=== PATIENT | female | born 1975 | race Two or more races ===

== ENCOUNTER 2017-02-25 12:24 | Observation (INO) | payer BC, OTHER ==
[2017-02-25] MEDS ORDERED: SODIUM CHLORIDE 1,000 ML IV STA (13:44)
--- NOTE | 2017-02-25 13:44 | PDOC ---
History of Present Illness - General Chief Complaint: Vomiting/Diarrhea Stated Complaint: ABD PAIN, FATIGUE,VOMITING Time Seen by Provider: 02/25/17 13:43 History Source: Patient Exam Limitations: No Limitations - History of Present Illness Initial Comments: 02/25/17 13:44 CHIEF COMPLAINT: Vomiting HISTORY OF PRESENT ILLNESS: This is an otherwise healthy 41 year old female who presents complaining of nausea/vomiting and diarrhea since 11pm last night. She has been able to keep down small sips of fluids. She denies abdominal pain, but does feel "bloated". She has not had fevers, but has had some chills. She denies dysuria, hematuria, or abnormal vaginal discharge. LMP was 02/18 and normal. She denies recent travel/sick contacts. Surgical history: Appendectomy. Vital signs on arrival are notable for P 120. REVIEW OF SYSTEMS: GENERAL/CONSTITUTIONAL: Chills. Generalized weakness. No weight change. HEAD, EYES, EARS, NOSE AND THROAT: No change in vision. No ear pain or discharge. No sore throat. CARDIOVASCULAR: No chest pain or palpitations. RESPIRATORY: No cough, wheezing, or shortness of breath. GASTROINTESTINAL: See HPI. GENITOURINARY: No dysuria, frequency, or change in urination. MUSCULOSKELETAL: No joint or muscle swelling or pain. No neck or back pain. SKIN: No rash or easy bruising. NEUROLOGIC: No headache, vertigo, loss of consciousness, or loss of sensation. PSYCHIATRIC: No depression or anxiety. ENDOCRINE: No increased thirst. No abnormal weight change. HEMATOLOGIC/LYMPHATIC: No anemia, easy bleeding, or history of blood clots. ALLERGIC/IMMUNOLOGIC: No hives or skin allergy. No latex allergy. PHYSICAL EXAM: GENERAL: The patient is awake, alert, and fully oriented, in no acute distress. HEAD: Normal with no signs of trauma. ENT: Pupils equal, round and reactive to light, extraocular movements intact, sclera anicteric, conjunctiva clear. Neck supple. LUNGS: Clear to auscultation bilaterally. Normal excursion. No respiratory distress or use of accessory muscles. CV: Tachycardic. RRR, S1/S2, no MRG. Cap refill < 2 sec. ABDOMEN: Soft, non-distended, non-tender even to deep palpation. EXTREMITIES: Normal range of motion, no edema. NEUROLOGICAL: Normal speech, normal gait. CN II-XII grossly intact. PSYCH: Normal mood, normal affect. SKIN: Warm, dry, normal turgor, no rashes or lesions noted. Past History - Past Medical History Allergies/Adverse Reactions: Allergies Allergy/AdvReac Type Severity Reaction Status Date / Time No Known Allergies Allergy Verified 02/25/17 12:45 Home Medications: Ambulatory Orders NK [No Known Home Medication] 02/25/17 - Surgical History Appendectomy: Yes - Psycho/Social/Smoking Cessation Hx Anxiety: No Suicidal Ideation: No Smoking Status: No Smoking History: Never smoked Number of Cigarettes Smoked Daily: 0 Information on smoking cessation initiated: No *Physical Exam - Vital Signs Last Vital Signs Temp Pulse Resp BP Pulse Ox 98 F 120 H 18 117/74 98 02/25/17 12:43 02/25/17 12:43 02/25/17 12:43 02/25/17 12:43 02/25/17 12:43 Heart Score/ECG Review - History History: Slightly suspicious - Electrocardiogram EKG: Non specific repolarization disturbance - Age Age: </= 45 - Risk Factors Risk Factors Heart Score: Yes Hx Hypertension Based on the list above the patient has:: 1-2 risk factors - Troponin Troponin: </= normal limit - Score Heart Score - Total: 2 - ECG Intrepretation Comment:: 02/25/17 19:00 ED Treatment Course - LABORATORY CBC & Chemistry Diagram: 02/25/17 13:44 02/25/17 13:44 Medical Decision Making - Medical Decision Making 02/25/17 15:35 A/P: 41 year old female with n/v/d. No abdominal pain or tenderness on exam. 1. EKG: Sinus tachycardia at 118bpm, TWI in anterior leads and ST depression in V3 2. Abdominal labs 3. IV fluids, Zofran, Pepcid Will repeat EKG when rate has decreased. 02/25/17 16:09 WBC mildly elevated at 11.2. Chemistry unremarkable. Some microscopic hematuria noted but patient reports she "just finished" her menses. 02/25/17 17:31 EKG repeated: Sinus tachycardia at 104bpm. TWI in anterior leads. Patient re-evaluated and is tolerating po water. Abdomen exam repeated and is again benign. Patient feels "weak" and "not right". Will request observation given abnormal EKG. Accepted by Dr. Chaparro. *DC/Admit/Observation/Transfer Diagnosis at time of Disposition: Tachycardia, Abnormal EKG Nausea & vomiting Qualifiers: Vomiting type: unspecified Vomiting Intractability: non-intractable Qualified Code(s): R11.2 - Nausea with vomiting, unspecified - Discharge Dispostion Admit: Yes
[2017-02-25 14:20] LABS: BASOPHIL 0.4 % (0-2.0); EOSINOPHIL 0.6 % (0-4.5); MCH 29.6 pg (25.7-33.7); MEAN CELL VOLUME 89.9 fl (80-96); MEAN PLT VOLUME 7.3 fl (7.5-11.1); NEUTROPHILS 92.1 % (42.8-82.8); PLATELET COUNT 313 K/MM3 (134-434); RDW 13.5 % (11.6-15.6); WHITE BLOOD COUNT 11.2 K/mm3 (4.0-10.0)
[2017-02-25 14:22] LABS: URINE APPEARANCE CLEAR; URINE BILIRUBIN NEGATIVE (NEGATIVE); URINE COLOR YELLOW; URINE GLUCOSE (UA) NEGATIVE (NEGATIVE); URINE KETONE NEGATIVE (NEGATIVE); URINE NITRITE NEGATIVE (NEGATIVE); URINE PROTEIN NEGATIVE (NEGATIVE); URINE UROBILINOGEN NEGATIVE E.U./dl (0.2-1.0)
[2017-02-25 14:24] LABS: URINE BLOOD 2+ (NEGATIVE); URINE LEUK ESTERASE 1+ (NEGATIVE)
[2017-02-25 14:30] LABS: URINE MUCUS RARE; URINE RBC 33 /hpf (0-3); URINE WBC 12 /hpf (3-5)
[2017-02-25 14:44] LABS: ALK PHOS 90 U/L (45-117); ANION GAP 12 (8-16); BILIRUBIN,TOTAL 0.6 mg/dL (0.2-1.0); CALCIUM 9.1 mg/dL (8.5-10.1); CO2 26 mmol/L (21-32); CREATININE 0.7 mg/dL (0.55-1.02); GLUCOSE,RANDOM 99 mg/dL (74-106); SGOT/AST 14 U/L (15-37); SGPT/ALT 28 U/L (12-78); TOT PROT 7.7 g/dl (6.4-8.2)
[2017-02-25 14:45] LABS: TROPONIN I < 0.02 ng/ml (0.00-0.05)
[2017-02-25] MEDS ORDERED: FAMOTIDINE 20 MG/50 ML IVPB 20 MG in PREMIX 50 IVPB ONE (14:51)
[2017-02-25] MEDS ORDERED: ONDANSETRON 4 MG/2 ML VIAL IVPUSH ONE (14:51)
[2017-02-25] MEDS ORDERED: ONDANSETRON 4 MG/2 ML VIAL ONE (15:11)
[2017-02-25] MEDS ORDERED: FAMOTIDINE 20 MG/50 ML IVPB 50 ML IVPB ONE (15:12)
[2017-02-25] MEDS: SODIUM CHLORIDE 1,000 ML IV SCH (15:22)
[2017-02-25] MEDS ORDERED: MAG HYDROX/AL HYDROX/SIMETH 30 ML UNIT-DOSE CUP PO ONE (16:43)
[2017-02-25] MEDS ORDERED: MAG HYDROX/AL HYDROX/SIMETH 30 ML UNIT-DOSE CUP ONE (16:52)
[2017-02-25 20:03] LABS: TROPONIN I < 0.02 ng/ml (0.00-0.05)
--- NOTE | 2017-02-25 20:32 | HP ---
Admitting History and Physical - Primary Care Physician PCP: Yuni Chaparro - Admission History of Present Illness: 41 year old female who presents complaining of nausea/vomiting and diarrhea since 11pm last night. She has been able to keep down small sips of fluids. She denies abdominal pain, but does feel "bloated". She has not had fevers, but has had chills nofever - Smoking History Smoking history: Never smoked Aproximately how many cigarettes per day: 0 Home Medications - Allergies Allergies/Adverse Reactions: Allergies Allergy/AdvReac Type Severity Reaction Status Date / Time No Known Allergies Allergy Verified 02/25/17 12:45 - Home Medications Home Medications: Ambulatory Orders NK [No Known Home Medication] 02/25/17 Physical Examination Vital Signs: Vital Signs Temperature 98 F 02/25/17 12:43 Pulse Rate 106 H 02/25/17 20:26 Respiratory Rate 18 02/25/17 20:26 Blood Pressure 124/63 02/25/17 20:26 O2 Sat by Pulse Oximetry (%) 100 02/25/17 20:26 Constitutional: Yes: No Distress HENT: Yes: Atraumatic Neck: Yes: Supple Cardiovascular: Yes: Regular Rate and Rhythm Respiratory: Yes: CTA Bilaterally Gastrointestinal: Yes: Normal Bowel Sounds Extremities: Yes: WNL Neurological: Yes: Alert, Oriented Imaging - Results Chest X-ray: Report Reviewed Problem List - Problems (1) Abnormal EKG Assessment/Plan: will monitor on tele repeat ekg fu cardiac enzyme Code(s): R94.31 - ABNORMAL ELECTROCARDIOGRAM [ECG] [EKG] (2) Nausea & vomiting Code(s): R11.2 - NAUSEA WITH VOMITING, UNSPECIFIED Qualifiers: Vomiting type: unspecified Vomiting Intractability: non-intractable Qualified Code(s): R11.2 - Nausea with vomiting, unspecified (3) Tachycardia Code(s): R00.0 - TACHYCARDIA, UNSPECIFIED (4) UTI (urinary tract infection) Assessment/Plan: mild observe asymptomatic Code(s): N39.0 - URINARY TRACT INFECTION, SITE NOT SPECIFIED Assessment/Plan Laboratory Tests 02/25/17 02/25/17 02/25/17 13:44 13:44 13:44 WBC 11.2 H RBC 4.90 Hgb 14.5 Hct 44.1 MCV 89.9 MCHC 33.0 RDW 13.5 Plt Count 313 MPV 7.3 L Neutrophils % 92.1 H Lymphocytes % 3.9 L Monocytes % 3.0 L Eosinophils % 0.6 Basophils % 0.4 Sodium 139 Potassium 4.0 Chloride 101 Carbon Dioxide 26 Anion Gap 12 BUN 12 Creatinine 0.7 Creat Clearance w eGFR > 60 Random Glucose 99 Calcium 9.1 Total Bilirubin 0.6 AST 14 L ALT 28 Alkaline Phosphatase 90 Creatine Kinase Troponin I Total Protein 7.7 Albumin 4.0 Lipase 90 TSH Urine Color Yellow Urine Appearance Clear Urine pH 6.0 Ur Specific [place] 1.028 Urine Protein Negative Urine Glucose (UA) Negative Urine Ketones Negative Urine Blood 2+ H Urine Nitrite Negative Urine Bilirubin Negative Urine Urobilinogen Negative Ur Leukocyte Esterase 1+ H Urine RBC 33 Urine WBC 12 Ur Epithelial Cells Few Urine Mucus Rare Urine HCG, Qual Negative 02/25/17 02/25/17 02/25/17 14:14 19:02 19:02 WBC RBC Hgb Hct MCV MCHC RDW Plt Count MPV Neutrophils % Lymphocytes % Monocytes % Eosinophils % Basophils % Sodium Potassium Chloride Carbon Dioxide Anion Gap BUN Creatinine Creat Clearance w eGFR Random Glucose Calcium Total Bilirubin AST ALT Alkaline Phosphatase Creatine Kinase 105 98 Troponin I < 0.02 < 0.02 Total Protein Albumin Lipase TSH 0.55 Urine Color Urine Appearance Urine pH Ur Specific [place] Urine Protein Urine Glucose (UA) Urine Ketones Urine Blood Urine Nitrite Urine Bilirubin Urine Urobilinogen Ur Leukocyte Esterase Urine RBC Urine WBC Ur Epithelial Cells Urine Mucus Urine HCG, Qual Active Medications Generic Name Dose Route Start Last Admin Trade Name Freq PRN Reason Stop Dose Admin Sodium Chloride 1,000 mls @ 125 mls/hr 02/25/17 15:15 02/25/17 15:22 Normal Saline - IV 125 mls/hr ASDIR BRIANNE Administration
[2017-02-25] MEDS ORDERED: SODIUM CHLORIDE 1,000 ML IV SCH (20:45)
[2017-02-25] MEDS ORDERED: PT OWN MED DRAWER 7, Y5N ONE (21:35)
[2017-02-25 23:15] VITALS: BMI 29.0
--- NOTE | 2017-02-26 17:34 | EKG ---
Test Reason : Blood Pressure : / mmHG Vent. Rate : 104 BPM Atrial Rate : 104 BPM P-R Int : 132 ms QRS Dur : 090 ms QT Int : 302 ms P-R-T Axes : 054 051 012 degrees QTc Int : 397 ms SINUS TACHYCARDIA POSSIBLE LEFT ATRIAL ENLARGEMENT LOW VOLTAGE QRS NONSPECIFIC T WAVE ABNORMALITY ABNORMAL ECG WHEN COMPARED WITH ECG OF 25-FEB-2017 14:04, NO SIGNIFICANT CHANGE WAS FOUND Confirmed by SUSANNE MADISON, TOM ([id number]) on 02/26/2017 5:34:12 PM Referred By: Confirmed By:TOM SKINNER MD
--- NOTE | 2017-02-26 17:38 | EKG ---
Test Reason : Blood Pressure : / mmHG Vent. Rate : 118 BPM Atrial Rate : 118 BPM P-R Int : 140 ms QRS Dur : 070 ms QT Int : 304 ms P-R-T Axes : 058 050 015 degrees QTc Int : 426 ms SINUS TACHYCARDIA POSSIBLE LEFT ATRIAL ENLARGEMENT LOW VOLTAGE QRS T WAVE ABNORMALITY, CONSIDER ANTERIOR ISCHEMIA ABNORMAL ECG NO PREVIOUS ECGS AVAILABLE Confirmed by TOM SKINNER MD ([id number]) on 02/26/2017 5:38:25 PM Referred By: Confirmed By:TOM SKINNER MD
--- NOTE | 2017-02-26 17:48 | CON.CARD ---
Consult Consult Specialty:: Cardiology Referred by:: Dr. Chaparro Reason for Consultation:: Cardiac evaluation - History of Present Illness Chief Complaint: Nausea and vomiting with sinus tachycardia - History Source History Provided By: Patient, Medical Record Limitations to Obtaining History: No Limitations - Past Medical History ...LMP: 02/15/17 ...: No - Past Surgical History Past Surgical History: Yes: None - Alcohol/Substance Use Hx Alcohol Use: No - Smoking History Smoking history: Never smoked Aproximately how many cigarettes per day: 0 Home Medications - Allergies Allergies/Adverse Reactions: Allergies Allergy/AdvReac Type Severity Reaction Status Date / Time No Known Allergies Allergy Verified 02/25/17 12:45 - Home Medications Home Medications: Ambulatory Orders NK [No Known Home Medication] 02/25/17 Review of Systems - Review of Systems Constitutional: denies: Chills, Fever Cardiovascular: denies: Chest Pain, Palpitations, Shortness of Breath Respiratory: denies: Cough, Hemoptysis, Orthopnea, PND, SOB, SOB on Exertion Gastrointestinal: reports: Diarrhea, Nausea, Vomiting. denies: Abdominal Pain, Constipation, Melena, Rectal Bleeding Genitourinary: denies: Dysuria Neurological: denies: Dizziness, Headache, Seizure, Syncope Vital Signs: Vital Signs Temperature 100.6 F H 02/26/17 17:27 Pulse Rate 85 02/26/17 17:27 Respiratory Rate 18 02/26/17 17:27 Blood Pressure 121/73 02/26/17 17:27 O2 Sat by Pulse Oximetry (%) 95 02/26/17 12:00 Neck: Yes: Supple Respiratory: Yes: CTA Bilaterally Gastrointestinal: Yes: Normal Bowel Sounds, Soft. No: Tenderness Cardiovascular: Yes: Regular Rate and Rhythm JVD: No Carotid Bruit: No PMI: Non-Displaced Heart Sounds: Yes: S1, S2. No: Gallop Murmur: No: Systolic Murmur, Diastolic Murmur Edema: No - Other Data Labs, Other Data: CBCD WBC 5.8 K/mm3 (4.0-10.0) D 02/26/17 21:00 RBC 4.05 M/mm3 (3.60-5.2) 02/26/17 21:00 Hgb 12.1 GM/dL (10.7-15.3) D 02/26/17 21:00 Hct 36.2 % (32.4-45.2) D 02/26/17 21:00 MCV 89.4 fl (80-96) 02/26/17 21:00 MCHC 33.5 g/dl (32.0-36.0) 02/26/17 21:00 RDW 13.3 % (11.6-15.6) 02/26/17 21:00 Plt Count 265 K/MM3 (134-434) 02/26/17 21:00 MPV 7.7 fl (7.5-11.1) 02/26/17 21:00 CBC, BMP 02/26/17 21:00 CARDIAC ENZYMES Creatine Kinase 98 IU/L (26-192) 02/25/17 19:02 Troponin I < 0.02 ng/ml (0.00-0.05) 02/25/17 19:02 Laboratory Tests 02/25/17 02/25/17 02/25/17 13:44 13:44 13:44 WBC 11.2 H RBC 4.90 Hgb 14.5 Hct 44.1 MCV 89.9 MCHC 33.0 RDW 13.5 Plt Count 313 MPV 7.3 L Neutrophils % 92.1 H Lymphocytes % 3.9 L Monocytes % 3.0 L Eosinophils % 0.6 Basophils % 0.4 Sodium 139 Potassium 4.0 Chloride 101 Carbon Dioxide 26 Anion Gap 12 BUN 12 Creatinine 0.7 Creat Clearance w eGFR > 60 Random Glucose 99 Calcium 9.1 Total Bilirubin 0.6 AST 14 L ALT 28 Alkaline Phosphatase 90 Creatine Kinase Troponin I Total Protein 7.7 Albumin 4.0 Lipase 90 TSH Urine Color Yellow Urine Appearance Clear Urine pH 6.0 Ur Specific [place] 1.028 Urine Protein Negative Urine Glucose (UA) Negative Urine Ketones Negative Urine Blood 2+ H Urine Nitrite Negative Urine Bilirubin Negative Urine Urobilinogen Negative Ur Leukocyte Esterase 1+ H Urine RBC 33 Urine WBC 12 Ur Epithelial Cells Few Urine Mucus Rare Urine HCG, Qual Negative 02/25/17 02/25/17 02/25/17 14:14 19:02 19:02 WBC RBC Hgb Hct MCV MCHC RDW Plt Count MPV Neutrophils % Lymphocytes % Monocytes % Eosinophils % Basophils % Sodium Potassium Chloride Carbon Dioxide Anion Gap BUN Creatinine Creat Clearance w eGFR Random Glucose Calcium Total Bilirubin AST ALT Alkaline Phosphatase Creatine Kinase 105 98 Troponin I < 0.02 < 0.02 Total Protein Albumin Lipase TSH 0.55 Urine Color Urine Appearance Urine pH Ur Specific [place] Urine Protein Urine Glucose (UA) Urine Ketones Urine Blood Urine Nitrite Urine Bilirubin Urine Urobilinogen Ur Leukocyte Esterase Urine RBC Urine WBC Ur Epithelial Cells Urine Mucus Urine HCG, Qual Sinus tachycardia with nonspecific T wave abnormality Echo: Pending Imaging - Results Chest X-ray: Report Reviewed (Unremarkable) EKG: Report Reviewed Problem List - Problems (1) Abnormal EKG Code(s): R94.31 - ABNORMAL ELECTROCARDIOGRAM [ECG] [EKG] (2) Nausea & vomiting Code(s): R11.2 - NAUSEA WITH VOMITING, UNSPECIFIED Qualifiers: Vomiting type: unspecified Vomiting Intractability: non-intractable Qualified Code(s): R11.2 - Nausea with vomiting, unspecified (3) Sinus tachycardia Code(s): R00.0 - TACHYCARDIA, UNSPECIFIED Assessment/Plan 1. Nausea/vomiting/diarrhea 2. Sinus tachycardia with nonspecific T abnormality - probably due to dehydration secondary to above symptoms PLAN: 1. Transthoracic echocardiography to assess LV and valvular function 2. Hydration 3. No further cardiac work up is warranted at this time since she does not exhibit cardiac symptoms and without any risk factors. Further plans are to follow Marcellus Klein MD
[2017-02-26] MEDS: SODIUM CHLORIDE 1,000 ML IV SCH (18:24)
--- NOTE | 2017-02-26 20:27 | PN ---
Progress Note, Physician History of Present Illness: mild fever - Current Medication List Current Medications: Active Medications Sodium Chloride (Normal Saline -) 1,000 mls @ 125 mls/hr IV ASDIR [facility] Last Admin: 02/26/17 18:24 Dose: Not Given Sodium Chloride (Normal Saline -) 1,000 mls @ 100 mls/hr IV ASDIR BRIANNE Last Admin: 02/26/17 06:40 Dose: 100 mls/hr Levofloxacin (Levaquin 500 Mg Premixed Ivpb -) 100 mls @ 100 mls/hr IVPB DAILY [facility] - Objective Vital Signs: Vital Signs Temperature 100.6 F H 02/26/17 18:00 Pulse Rate 85 02/26/17 18:00 Respiratory Rate 18 02/26/17 18:00 Blood Pressure 121/73 02/26/17 18:00 O2 Sat by Pulse Oximetry (%) 95 02/26/17 12:00 Constitutional: Yes: No Distress HENT: Yes: Atraumatic Neck: Yes: Supple Cardiovascular: Yes: Regular Rate and Rhythm Respiratory: Yes: CTA Bilaterally Gastrointestinal: Yes: Normal Bowel Sounds Extremities: Yes: WNL Problem List - Problems (1) Abnormal EKG Assessment/Plan: will monitor on tele repeat ekg fu cardiac enzyme...negative need cardiac clearance to be dc Code(s): R94.31 - ABNORMAL ELECTROCARDIOGRAM [ECG] [EKG] (2) Nausea & vomiting Assessment/Plan: resolved dc ivf tolerating diet Code(s): R11.2 - NAUSEA WITH VOMITING, UNSPECIFIED Qualifiers: Vomiting type: unspecified Vomiting Intractability: non-intractable Qualified Code(s): R11.2 - Nausea with vomiting, unspecified (3) Tachycardia Code(s): R00.0 - TACHYCARDIA, UNSPECIFIED (4) UTI (urinary tract infection) Assessment/Plan: will start iv abx mild fever will send ucx follow up cbc cmp Code(s): N39.0 - URINARY TRACT INFECTION, SITE NOT SPECIFIED
[2017-02-26] MEDS: LEVOFLOXACIN 500 MG IVPB 100 ML IVPB SCH (21:52)
[2017-02-26 22:02] LABS: BASOPHIL 0.4 % (0-2.0); EOSINOPHIL 2.7 % (0-4.5); MCH 29.9 pg (25.7-33.7); MCHC 33.5 g/dl (32.0-36.0); MEAN CELL VOLUME 89.4 fl (80-96); MEAN PLT VOLUME 7.7 fl (7.5-11.1); NEUTROPHILS 66.8 % (42.8-82.8); PLATELET COUNT 265 K/MM3 (134-434); RDW 13.3 % (11.6-15.6); WHITE BLOOD COUNT 5.8 K/mm3 (4.0-10.0)
[2017-02-27 07:05] LABS: ALBUMIN 2.9 g/dl (3.4-5.0); ANION GAP 9 (8-16); CALCIUM 8.2 mg/dL (8.5-10.1); CO2 26 mmol/L (21-32); GLUCOSE,RANDOM 95 mg/dL (74-106)
[2017-02-27 07:09] LABS: ALK PHOS 65 U/L (45-117); BILIRUBIN,TOTAL 0.3 mg/dL (0.2-1.0); CREATININE 0.4 mg/dL (0.55-1.02); SGOT/AST 15 U/L (15-37); SGPT/ALT 23 U/L (12-78)
--- NOTE | 2017-02-27 09:14 | PN ---
Progress Note, Physician Chief Complaint: Not in distress History of Present Illness: Patient was seen and examined. Awake and alert. Chart was reviewed Denies chest pain, SOB or palpitations Episode of fever last night - given IV antibiotics Transthoracic echocardiography not done yet - Current Medication List Current Medications: Active Medications Levofloxacin (Levaquin 500 Mg Premixed Ivpb -) 100 mls @ 100 mls/hr IVPB DAILY BRIANNE Last Admin: 02/26/17 21:52 Dose: 100 mls/hr - Objective Vital Signs: Vital Signs Temperature 97.9 F 02/27/17 06:00 Pulse Rate 89 02/27/17 06:00 Respiratory Rate 16 02/27/17 08:58 Blood Pressure 126/73 02/27/17 06:00 O2 Sat by Pulse Oximetry (%) 100 02/27/17 08:58 Neck: Yes: Supple Cardiovascular: Yes: Regular Rate and Rhythm, S1, S2. No: Gallop, Murmur Respiratory: Yes: CTA Bilaterally Gastrointestinal: Yes: Normal Bowel Sounds, Soft. No: Tenderness Edema: No Labs: CBC, BMP 02/26/17 21:00 02/27/17 05:35 Problem List - Problems (1) Abnormal EKG Code(s): R94.31 - ABNORMAL ELECTROCARDIOGRAM [ECG] [EKG] (2) Nausea & vomiting Code(s): R11.2 - NAUSEA WITH VOMITING, UNSPECIFIED Qualifiers: Vomiting type: unspecified Vomiting Intractability: non-intractable Qualified Code(s): R11.2 - Nausea with vomiting, unspecified (3) Sinus tachycardia Code(s): R00.0 - TACHYCARDIA, UNSPECIFIED (4) UTI (urinary tract infection) Code(s): N39.0 - URINARY TRACT INFECTION, SITE NOT SPECIFIED Qualifiers: Urinary tract infection type: site unspecified Hematuria presence: without hematuria Qualified Code(s): N39.0 - Urinary tract infection, site not specified Assessment/Plan 1. Nausea/vomiting/diarrhea 2. Sinus tachycardia with nonspecific T abnormality - probably due to dehydration secondary to above symptoms 3. Fever - ? UTI PLAN: 1. Transthoracic echocardiography to assess LV and valvular function today. If unremarkable, she may be discharged home cardiac standpoint 2. Continue hydration and antibiotic to be given - urine culture pending 3. No further cardiac work up is warranted at this time since she does not exhibit cardiac symptoms and without any risk factors, but she may have exercise stress testing if clinically indicated as outpatient Further plans are to follow Marcellus Klein MD
[2017-02-27] MEDS: LEVOFLOXACIN 500 MG IVPB 100 ML IVPB SCH (09:53)
[2017-02-27 13:48] VITALS: BP 104/63; PULSE 101; TEMP 98.9
--- NOTE | 2017-02-27 14:09 | DS ---
Physical Examination Vital Signs: Vital Signs Temperature 98.9 F 02/27/17 13:47 Pulse Rate 101 H 02/27/17 13:47 Respiratory Rate 18 02/27/17 13:47 Blood Pressure 104/63 02/27/17 13:47 O2 Sat by Pulse Oximetry (%) 100 02/27/17 08:58 Labs: CBC, BMP 02/26/17 21:00 02/27/17 05:35 Discharge Summary Reason For Visit: TACHYCARDIA/ABN ELECTROCARDIOGRAPHY Current Active Problems Abnormal EKG (Acute) Nausea & vomiting (Acute) Sinus tachycardia (Acute) Tachycardia (Acute) UTI (urinary tract infection) (Acute) - Instructions Diet, Activity, Other Instructions: pt need to see her pmd in next few days to get clearance to go back to work note will be given to her for the days she spent in the hospital need to follow up on urine cultures and check sensitivities Disposition: HOME - Home Medications Comprehensive Discharge Medication List: Ambulatory Orders Levofloxacin [Levaquin] 500 mg PO DAILY #5 tablet 02/27/17 Miscellaneous Medical Supply [Outpatient Order] 1 each ASDIR #1 misc cleared by cardiology to be discharge home
== END 2017-02-27 15:03 | disposition home or self-care (01) ==
LOC: JER 12:24 → JERBED 19:06 → J4S 20:22
PROVIDERS: ADMIT Internal Medicine; ATTEND Internal Medicine
PROC: 3E03329 Introduction of Other Anti-infective into Peripheral Vein, Percutaneous Approach (ICD-10-PCS; principal; 2017-02-25)
PROC: 3E033GC Introduction of Other Therapeutic Substance into Peripheral Vein, Percutaneous Approach (ICD-10-PCS; 2017-02-25)
PROC: 3E0337Z Introduction of Electrolytic and Water Balance Substance into Peripheral Vein, Percutaneous Approach (ICD-10-PCS; 2017-02-25)
DX: R94.31 Abnormal electrocardiogram [ECG] [EKG] (principal); R00.0 Tachycardia, unspecified; R11.2 Nausea with vomiting, unspecified; N39.0 Urinary tract infection, site not specified; E86.0 Dehydration
CPT/HCPCS: 36415; 71010-TC; 80053; 81003; 81015; 82550; 83690; 84443; 84484; 84703; 85025; 87086; 93005; 93010; 93306-TC; 99284-25; G0378